=== PATIENT | female | born 1990 | race African-American/Black ===

== ENCOUNTER 2017-05-01 13:23 | Emergency (ER) | payer SELFPAY ==
[~2017-05-01] VITALS: Ht 162.6 cm; Wt 49.9 kg
[2017-05-01] MEDS ORDERED: ONDANSETRON ODT 4 MG TAB.RAPDIS. PO ONE (13:45)
[2017-05-01] MEDS ORDERED: ACETAMINOPHEN 500 MG TABLET PO ONE (13:45)
[2017-05-01] MEDS ORDERED: IBUPROFEN 800 MG TABLET. PO ONE (13:45)
--- NOTE | 2017-05-01 13:47 | PHYS DOC ---
Past Medical History Past Medical History: No Pertinent History Past Surgical History: Alcohol Use: None Drug Use: None Adult General Chief Complaint Chief Complaint: HEADACHE HPI HPI Patient is a 26 year old female who presents with a posterior headache mild in nature, intermittent nausea and vomiting, and generalized body aches for 2 days. Patient's also complaining of chills. Patient is in the ED with a soda in a cup that she is drinking with no difficulties. Patient denies any photophobia. Denies this being the worst headache in her life. Patient does not know anything that exacerbates or makes the headache worse or better. Review of Systems Review of Systems Constitutional: fever and body aches Eyes: Denies change in visual acuity, redness, or eye pain [] HENT: Denies nasal congestion or sore throat [] Respiratory: Denies cough or shortness of breath [] Cardiovascular: No additional information not addressed in HPI [] GI: nausea, vomiting : Denies dysuria or hematuria [] Musculoskeletal: Denies back pain or joint pain [] Integument: Denies rash or skin lesions [] Neurologic:headache Current Medications Current Medications Current Medications Medications (Trade) Dose Ordered Sig/Kristopher Start Time Stop Time Status Last Admin Dose Admin Acetaminophen (Tylenol) 1,000 mg 1X ONCE 05/01/17 13:45 05/01/17 13:48 DC 05/01/17 13:45 1,000 MG Ibuprofen (Motrin) 800 mg 1X ONCE 05/01/17 13:45 05/01/17 13:48 DC 05/01/17 13:45 800 MG Ondansetron HCl (Zofran Odt) 4 mg 1X ONCE 05/01/17 13:45 05/01/17 13:48 DC 05/01/17 13:45 4 MG Allergies Allergies Allergies Coded Allergies Type Severity Reaction Last Updated Verified No Known Drug Allergies 03/06/16 No Physical Exam Physical Exam Constitutional: Well developed, well nourished, no acute distress, non-toxic appearance. [] HENT: Normocephalic, atraumatic, bilateral external ears normal, oropharynx moist, no oral exudates, nose normal. [] Eyes: PERRLA, EOMI, conjunctiva normal, no discharge. [] Neck: Normal range of motion, no tenderness, supple, no stridor. [] Cardiovascular:Heart rate regular rhythm, no murmur [] Lungs & Thorax: Bilateral breath sounds clear to auscultation [] Abdomen: Bowel sounds normal, soft, no tenderness, no masses, no pulsatile masses. [] Skin: Warm, dry, no erythema, no rash. [] Back: No tenderness, no CVA tenderness. [] Extremities: No tenderness, no cyanosis, no clubbing, ROM intact, no edema. [] Neurologic: Alert and oriented X 3, normal motor function, normal sensory function, no focal deficits noted. Cranial nerves II through XII intact Psychologic: Affect normal, judgement normal, mood normal. [] Current Patient Data Vital Signs Vital Signs Date Time Temp Pulse Resp B/P (MAP) Pulse Ox O2 Delivery O2 Flow Rate FiO2 05/01/17 13:25 100.4 102 18 113/62 (79) 100 Room Air 100.4 Lab Values Laboratory Tests Test 05/01/17 12:49 05/01/17 13:30 POC Urine HCG, Qualitative Hcg negative (Negative) Urine Collection Type Unknown Urine Color Yellow Urine Clarity Clear Urine pH 7.5 Urine Specific [place] 1.015 Urine Protein Negative mg/dL (NEG-TRACE) Urine Glucose (UA) Negative mg/dL (NEG) Urine Ketones (Stick) Negative mg/dL (NEG) Urine Blood Trace (NEG) Urine Nitrite Negative (NEG) Urine Bilirubin Negative (NEG) Urine Urobilinogen Dipstick 1.0 mg/dL (0.2 mg/dL) Urine Leukocyte Esterase Small (NEG) Urine RBC 1-2 /HPF (0-2) Urine WBC 1-4 /HPF (0-4) Urine Squamous Epithelial Cells Many /LPF Urine Bacteria Mod /HPF (0-FEW) Urine Mucus Slight /LPF EKG EKG [] Radiology/Procedures Radiology/Procedures [] Course & Med Decision Making Course & Med Decision Making Pertinent Labs and Imaging studies reviewed. (See chart for details) This is a well-appearing patient who presents to the ED today with body aches, subjective fevers, headache nausea and vomiting for 2 days. Patient is in no distress. She is drinking in the ED with no difficulty. She had a temperature of 100.4 on arrival to the ED. Urine positive for UTI. She'll be discharged with Bactrim for 3 days. Tylenol/Motrin for pain or fever. Follow-up with primary care doctor in 1-2 weeks. Dragon Disclaimer Dragon Disclaimer This electronic medical record was generated, in whole or in part, using a voice recognition dictation system. Departure Departure Impression: Primary Impression: Urinary tract infection Additional Impressions: Headache Fever Disposition: 01 HOME, SELF-CARE Condition: STABLE Referrals: NO PCP (PCP) Follow-up with your doctor in one week Patient Instructions: Fever, Adult, General Headache Without Cause, Easy-to- Read, Urinary Tract Infection Additional Instructions: Your urine is positive for urinary tract infection. You also have a fever. Take Tylenol every 4 hours and Motrin every 6 hours. Complete your antibiotics for urinary tract infection. Follow up with your doctor in 1-2 weeks Scripts Promethazine Hcl (PROMETHAZINE HCL) 25 Mg Tablet 1 TAB PO PRN Q6HRS, #20 TAB Prov: DEBBIE CARDENAS TOLL BRIDGE ATTENDANT 05/01/17 Tramadol Hcl (ULTRAM) 50 Mg Tablet 1 TAB PO Q6HRS, #30 TAB Prov: DEBBIE CARDENAS APRN 17 Sulfamethoxazole/Trimethoprim (BACTRIM DS TABLET) 1 Each Tablet 1 TAB PO BID, #6 TAB Prov: DEBBIE ACRDENAS APRN 05/01/17 Problem Qualifiers Primary Impression: Urinary tract infection Urinary tract infection type: site unspecified Hematuria presence: without hematuria Qualified Codes: N39.0 - Urinary tract infection, site not specified Additional Impressions: Headache Headache type: unspecified Headache chronicity pattern: acute headache Intractability: not intractable Qualified Codes: R51 - Headache Fever Fever type: unspecified Qualified Codes: R50.9 - Fever, unspecified DEBBIE CARDENAS TOLL BRIDGE ATTENDANT May 01, 2017 13:47
[2017-05-01 13:58] LABS: BILIRUBIN,URINE NEGATIVE (NEG); GLUCOSE,URINE NEGATIVE (NEG); NITRITE,URINE NEGATIVE (NEG); PH,URINE 7.5; PROTEIN,URINE NEGATIVE (NEG-TRACE)
[2017-05-01 14:06] LABS: BACTERIA,URINE MOD /HPF (0-FEW); SQUAMOUS EPITHELIAL CELL,UR MANY /LPF
[2017-05-01 14:20] VITALS: BP 109/59
[2017-05-01] MEDS ORDERED: TRAM-48 PO (14:46)
[2017-05-01] MEDS ORDERED: SULF1TAB24 PO (14:46)
[2017-05-01] MEDS ORDERED: PROM25TA10 PO (14:46)
== END 2017-05-01 14:55 | disposition home or self-care (01) ==
LOC: ER 13:23
DX: R51 Headache (principal); N39.0 Urinary tract infection, site not specified
CPT/HCPCS: 81001; 81025; 99284; Q0162

== ENCOUNTER 2019-06-10 08:29 | Emergency (ER) | payer SELFPAY ==
[~2019-06-10] VITALS: Ht 162.6 cm; Wt 49.9 kg
[~2019-06-10 08:29] MED LIST: PROM25TA10 PO; SULF1TAB24 PO; TRAM-48 PO
[2019-06-10 09:02] VITALS: BP 144/77
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
[2019-06-10] MEDS ORDERED: ORPHENADRINE CITRATE 60 MG/2 ML VIAL. IM ONE (09:15)
[2019-06-10] MEDS ORDERED: KETOROLAC 60 MG/2 ML VIAL. IM ONE (09:15)
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
[2019-06-10] MEDS ORDERED: IBUP-1027 PO (10:12)
[2019-06-10] MEDS ORDERED: ORPH100T PO (10:12)
== END 2019-06-10 10:30 | disposition home or self-care (01) ==
LOC: ER 08:29
DX: M54.2 Cervicalgia (principal); M54.6 Pain in thoracic spine; R51 Headache; G89.11 Acute pain due to trauma; V49.49XA Driver injured in collision with other motor vehicles in traffic accident, initial encounter; Y92.488 Other paved roadways as the place of occurrence of the external cause; Y93.89 Activity, other specified; Y99.8 Other external cause status
CPT/HCPCS: 70450; 72125; 72128; 81025; 96372; 99284; J1885; J2360